=== PATIENT | female | born 1980 | race Two or more races ===

== ENCOUNTER 2020-02-18 10:34 | Inpatient (IN) | payer OTHER ==
[~2020-02-18] VITALS: Ht 162.6 cm; Wt 69.9 kg
[2020-03-17] MEDS ORDERED: PRENATAL TABLE1 EAC1 PO (05:14)
[2020-03-17] MEDS ORDERED: ZOLOFT100 MG PO (05:15)
[2020-03-17] MEDS ORDERED: SYNTHROID100 MCG PO (05:16)
== END 2020-03-19 11:09 | DRG 807 ==
LOC: LDR 03-15 14:30 → SURG-SUITE 03-17 05:08 → LDR 03-17 05:08 → SURG-SUITE 03-17 13:53
PROVIDERS: ADMIT Obstetrics & Gynecology; ATTEND Obstetrics & Gynecology
PROC: 10E0XZZ Delivery of Products of Conception, External Approach (ICD-10-PCS; principal; 2020-03-17)
PROC: 0HQ9XZZ Repair Perineum Skin, External Approach (ICD-10-PCS; 2020-03-17)
PROC: 4A0HXFZ Measurement of Products of Conception, Cardiac Rhythm, External Approach (ICD-10-PCS; 2020-03-17)
DX: O70.0 First degree perineal laceration during delivery (principal); Z37.0 Single live birth; Z3A.40 40 weeks gestation of pregnancy; Z20.828 Contact with and (suspected) exposure to other viral communicable diseases